=== PATIENT | male | born 1975 | race African-American/Black ===

== ENCOUNTER 2016-12-11 11:03 | Emergency (ER) | payer SELFPAY ==
[~2016-12-11] VITALS: Ht 177.8 cm; Wt 113.0 kg
[2016-12-11 17:03] VITALS: BP 157/92
== END 2016-12-11 18:00 | disposition left against medical advice (07) ==
LOC: ER 11:03
DX: Z53.21 Procedure and treatment not carried out due to patient leaving prior to being seen by health care provider (principal)